=== PATIENT | female | born 1985 | race Asian ===

== ENCOUNTER → 2019-12-15 14:22 | Outpatient (CLI) | payer OTHER, SELFPAY ==
[2019-12-15 15:51] LABS: HCG Quantitative /Beta subunit < 2.4 mIU/mL
== END ==
PROVIDERS: Referring Provider Specialist; Visit Provider Specialist
DX: O20.9 Hemorrhage in early pregnancy, unspecified (principal)
CPT/HCPCS: 36415; 84702

== ENCOUNTER → 2021-06-22 09:03 | Outpatient (CLI) | payer OTHER, SELFPAY ==
[2021-06-22 16:52] LABS: Urine N gonorrhoeae NOT DETECTED
[2021-06-22 17:07] LABS: Urine Chlamydia NOT DETECTED
== END ==
PROVIDERS: Visit Provider Specialist
DX: Z34.81 Encounter for supervision of other normal pregnancy, first trimester (principal); Z3A.10 10 weeks gestation of pregnancy
CPT/HCPCS: 87491; 87591

== ENCOUNTER → 2021-06-22 09:12 | Outpatient (CLI) | payer OTHER, SELFPAY ==
[2021-06-22 09:56] LABS: Appearance Urine UA CLEAR; Bilirubin Urine UA NEGATIVE (NEGATIVE); Color Urine UA YELLOW; Glucose Urine UA NEGATIVE (Negative); Ketones Urine UA NEGATIVE (NEGATIVE); Leukocyte Esterase Urine UA NEGATIVE (NEGATIVE); Nitrite Urine UA NEGATIVE (Negative); Occult Blood Urine UA NEGATIVE (Negative); Protein Urine UA TRACE (Negative); Specific Gravity Urine UA 1.025 (1.000-1.035); Urobilinogen Urine UA 0.2 E.U./dL (0.2)
[2021-06-22 10:00] LABS: pH Urine UA 6.5 (4.5-8.0)
[2021-06-22 10:12] LABS: Add Manual Diff / Slide Review NO; Basophils Absolute Auto 0 /uL (0-100); Basophils Percent Auto 0.6 % (0-2); Eosinophils Absolute Auto 200 /uL (0-450); Eosinophils Percent Auto 2.8 % (2-4); Hematocrit 37.9 % (36-46); Hemoglobin 13.3 g/dL (12.0-16.0); Lymphocytes Absolute Auto 1800 /uL (1100-4500); Lymphocytes Percent Auto 25.7 % (25-40); Mean Corpuscular HGB Conc 35.1 % (30-36); Mean Corpuscular Hemoglobin 31.1 PG (26-34); Mean Corpuscular Volume 88.6 fL (80-100); Monocytes Absolute Auto 300 /uL (0-900); Monocytes Percent Auto 4.6 % (3-14); Neutrophils Absolute Auto 4700 /uL (1500-7000); Neutrophils Percent Auto 66.3 % (50-75); Platelet Count 250 X10^3/uL (150-400); Red Blood Cell Count 4.28 X10^6/uL (4.0-5.2); Red Cell Distribution Width 13.1 % (11.6-14.8)
[2021-06-23 12:06] LABS: RPR Screen Non Reactive (Non Reactive); Varicella IgG Antibody 1829 index (Immune >165)
[2021-06-23 15:28] LABS: Hepatitis B Surface Antigen NEGATIVE s/c (NEGATIVE); Rubella Antibody IgG 54.8 IU/mL (>15)
[2021-06-23 15:30] LABS: HIV 1 & 2 Ab/Ag 4th Gen Combo NEGATIVE (NEGATIVE); Hep C Virus Ab w/Reflex Quant NEGATIVE s/c (NEGATIVE)
== END ==
PROVIDERS: PCP Family Medicine; Referring Provider Specialist; Visit Provider Specialist
DX: Z34.81 Encounter for supervision of other normal pregnancy, first trimester (principal); Z3A.10 10 weeks gestation of pregnancy
CPT/HCPCS: 36415; 80055; 81003; 86787; 86803; 86850; 86900; 86901; 87086; 87389; 87491; 87591

== ENCOUNTER → 2021-06-30 10:45 | Outpatient (CLI) | payer OTHER, SELFPAY ==
[2021-06-30 16:05] LABS: Specimen Label NATARA KIT
== END ==
PROVIDERS: PCP Family Medicine; Referring Provider Specialist; Visit Provider Specialist
DX: O09.511 Supervision of elderly primigravida, first trimester (principal); Z36.0 Encounter for antenatal screening for chromosomal anomalies
CPT/HCPCS: 36415

== ENCOUNTER → 2021-08-17 09:01 | Outpatient (CLI) | payer OTHER, SELFPAY ==
[2021-08-24 23:20] LABS: AFP Value 39.4 ng/mL (.); Gestational Age EDD (.); Insulin Dep Diabetes No (.); OSBR Risk 1IN 10000 (.); Results Report (.); Test Results *Screen Negative* (.)
== END ==
PROVIDERS: PCP Family Medicine; Referring Provider Specialist; Visit Provider Specialist
DX: Z34.82 Encounter for supervision of other normal pregnancy, second trimester (principal); Z3A.17 17 weeks gestation of pregnancy
CPT/HCPCS: 36415; 82105

== ENCOUNTER → 2021-09-15 08:51 | Outpatient (CLI) | payer OTHER, SELFPAY ==
--- NOTE | 2021-09-15 08:53 | DI.US.S_ITS ---
PROCEDURE: US OB >= 14 WEEKS FETUS INDICATIONS: ANATOMY OUTSIDE/PRIOR DATING DATA: Last menstrual period (LMP): April 11, 2021. LMP-based estimated date of delivery (FRANKO): January 16, 2022. First dating scan (date and location): June 22, 2021, Dr. Kyle's office. Estimated date of delivery (FRANKO) from first dating scan: June 22, 2021. TECHNIQUE: Real-time scanning was performed of the fetus, with image documentation and biometric measurements. Endovaginal scanning: Not performed COMPARISON: [facility], , OB >= 14 WEEKS FETUS, 07/20/2021, 8:24. FINDINGS: General: A single living intrauterine gestation is present. Presentation: Vertex. Placenta: Placental position is posterior , without previa. Lower placental edge 2 cm or less from internal cervical os qualifies as low lying placenta. Amniotic fluid index: 13.1 cm, normal range is 5-24 cm. Single deepest vertical pocket is 3.5 cm. heart rate: 149 beats per minute. Maternal cervical canal: 3.8 cm long. Normal lower limit is 2.5 cm. biometrics: Biparietal diameter: 5.1 cm, 21 weeks, 3 days Head circumference: 18.9 cm, 21 weeks 1 day Abdominal circumference: 17.3 cm, 22 weeks 1 day Femur length: 3.4 cm, 20 weeks, 5 days Clinically estimated gestational age: 21 weeks, 1 day Composite gestational age from present scan: 21 weeks, 3 days Estimated weight and percentile: 429 g, 65% Anatomic survey: Neuro: Ventricles are non-dilated at less than 10 mm. Cisterna magna is normal at 3-11 mm. Cerebellum is normal in size and morphology. Nuchal skin fold: Normal at less than 6 mm between 14-21 weeks gestational age. Face: Nose and lips, facial profile are normal. Spine: No evidence for spina bifida. Heart: 4-chambered heart is present, with normal ventricular outflow tracts. Diaphragm: Diaphragm is intact. Stomach: Left-sided stomach is present. Kidneys: No hydronephrosis. Normal is less than 5 mm in 2nd trimester, less than 7 mm in 3rd trimester. Cord: 3-vessel cord has orthotopic insertion. Bladder: Normal in size. Extremities: All 4 extremities identified. IMPRESSION: Single live intrauterine gestation with a composite gestational age of 21 weeks, 3 days which is concordant with dates by initial study. No sonographic anatomic abnormalities. We strive to produce accurate, complete, and clear reports of imaging services. To assist us in improving patient care, this report was composed using standard report templates and voice recognition software. Therefore, it may contain abnormal punctuation, insertions and/or omissions. Occasional wrong-word or sound-alike substitutions may occur. Though we review the report and make efforts to correct it, we do recommend that the report be read carefully in proper context to recognize any text inaccuracies. Dictated by: Magda Jacob M.D. on 09/15/2021 at 11:11 Approved by: Magda Jacob M.D. on 09/15/2021 at 11:16
== END ==
PROVIDERS: PCP Family Medicine; Referring Provider Specialist; Visit Provider Specialist
DX: Z34.82 Encounter for supervision of other normal pregnancy, second trimester (principal); Z3A.21 21 weeks gestation of pregnancy
CPT/HCPCS: 76811

== ENCOUNTER → 2021-09-30 15:26 | Outpatient (CLI) | payer OTHER, SELFPAY ==
[2021-09-30 16:40] LABS: Add Manual Diff / Slide Review NO; Basophils Absolute Auto 0 /uL (0-100); Basophils Percent Auto 0.4 % (0-2); Eosinophils Absolute Auto 100 /uL (0-450); Eosinophils Percent Auto 1.7 % (2-4); Hematocrit 32.4 % (36-46); Hemoglobin 11.3 g/dL (12.0-16.0); Lymphocytes Absolute Auto 1600 /uL (1100-4500); Mean Corpuscular Hemoglobin 32.5 PG (26-34); Mean Corpuscular Volume 93.1 fL (80-100); Monocytes Absolute Auto 400 /uL (0-900); Monocytes Percent Auto 5.2 % (3-14); Neutrophils Absolute Auto 5900 /uL (1500-7000); Neutrophils Percent Auto 72.7 % (50-75); Platelet Count 225 X10^3/uL (150-400); Red Blood Cell Count 3.48 X10^6/uL (4.0-5.2); Red Cell Distribution Width 13.5 % (11.6-14.8)
[2021-09-30 17:02] LABS: Alanine Aminotransferase 12 IU/L (<35); Aspartate Aminotransferase 20 IU/L (14-36); BUN Creatinine Ratio 18.9 (6-22); Blood Urea Nitrogen 10 mg/dL (7-17); Estimated Glomerular Filt Rate > 60.0 mL/min (>60); Uric Acid 4.3 mg/dL (2.5-6.2)
== END ==
PROVIDERS: PCP Family Medicine; Referring Provider Specialist; Visit Provider Specialist
DX: O16.2 Unspecified maternal hypertension, second trimester (principal); Z3A.23 23 weeks gestation of pregnancy
CPT/HCPCS: 36415; 82565; 84450; 84460; 84520; 84550; 85025

== ENCOUNTER → 2021-10-03 10:44 | Outpatient (CLI) | payer OTHER, SELFPAY ==
[2021-10-03 13:13] LABS: Collection Time Urine 24 Hours; Protein (Total) Urine Random 10 mg/dL (0-12); Total Protein 24 Hour Urine 90 mg/day (42-225); Total Volume Urine 900 mL
== END ==
PROVIDERS: PCP Family Medicine; Referring Provider Specialist; Visit Provider Specialist
DX: O16.2 Unspecified maternal hypertension, second trimester (principal); Z3A.23 23 weeks gestation of pregnancy
CPT/HCPCS: 84156

== ENCOUNTER 2021-10-03 10:45 | Outpatient (CLI) | payer OTHER, SELFPAY ==
--- NOTE | 2021-10-03 11:33 | P.TNLD_ITS ---
Visit Information Visit Information Date of evaluation: 10/03/21 Primary OB Provider: Lisset Kyle On-call OB Provider: Susan Jesus Comments/Additional reasons for admission: Pt is a 36yo at 23w5d who presented due to elevated BPs at home. The pt was seen in clinic for elevated BPs on 09/30, lab work was reassuring at that time. She turned in her 24hr protein this morning. She does have know chronic HTN. She had been on 100mg Labetalol BID, increased to TID dosing on 09/30. She reports her BPs at home have been 147/101, 139/101, 145/101, 145/85, 138/85, 150/100, immediately before comping 146/90, 145/95. She denies any headaches, vision changes, RUQ pain, worsening LE edema. [facility] Medical History (Updated 09/30/21 @ 15:11 by Lisset Kyle MD) UTI (urinary tract infection) Vaginal delivery Family History (Updated 06/13/21 @ 12:01 by Penny Reyna RN) Mother Hypothyroid Cancer Sister Hypothyroid Cancer Social History marital status: number of children: 1 household members: spouse, family (Husbands parents) and children lives independently: Yes caregiver/support person: Yes housing: house pets and animals: No education level: college occupational status: unemployed current occupational exposures/hazards: No seatbelt use: always working smoke detector in home: Yes fire extinguisher in home: Yes carbon monox detector in home: Yes firearms in home: Yes firearms unloaded and locked: Yes do you feel safe at home: Yes Smoking Status: Never smoker second hand exposure: No alcohol intake: former during the past year weight has: remained stable well-balanced diet: daily or most days daily servings fruits/ve or more times/day caffeine: Yes eating out: rarely or never Type(s) of exercise: walking, aerobic, weight lifting and resistance training Evaluation Evaluation Baseline heart rate: 150 Diagnosis, Plan/Disposition Final Diagnosis (1) Hypertension affecting in second trimester: Status: Acute Plan/Disposition Plan: Pt is a 36yo at 23w5d who presented due to elevated BPs at home with known chronic HTN. BPs consistently normal range in L&D. Asymptomatic. Pt turned in 24hr protein this morning, labs negative for HELLP on 09/30. Encouraged the pt to continue checking her BPs at home regularly, would likely benefit from a new BP cuff. Discussed values that should prompt evaluation. Encouraged f/u with primary OB to review BPs again later this week. Stable for d/c home. OB Disposition: home
[2021-10-03 12:18] VITALS: BP 125/74; PULSE 85; RESP 20; TEMP 36.6
== END 2021-10-03 12:10 | disposition home or self-care (01) ==
LOC: LABOR 12:03 → OB 10-07 09:30
PROVIDERS: PCP Family Medicine; Referring Provider Specialist; Visit Provider Specialist
DX: O10.912 Unspecified pre-existing hypertension complicating pregnancy, second trimester (principal); Z3A.23 23 weeks gestation of pregnancy
CPT/HCPCS: 59050; 84156; G0378; G0379

== ENCOUNTER 2021-10-04 10:31 | Outpatient (CLI) | payer OTHER, SELFPAY | END 2021-10-04 11:25 | disposition home or self-care (01) | LOC: LABOR 11:12 → OB 10-07 09:33 | PROVIDERS: PCP Family Medicine; Referring Provider Specialist; Visit Provider Specialist | DX: O09.522 Supervision of elderly multigravida, second trimester (principal); Z3A.23 23 weeks gestation of pregnancy | CPT/HCPCS: 59025; G0378; G0379 ==

== ENCOUNTER → 2021-11-04 08:54 | Outpatient (CLI) | payer OTHER, SELFPAY ==
[2021-11-04 10:48] LABS: Glucose 1 Hour Gest 182 mg/dL (76-180)
[2021-11-04 11:03] LABS: Glucose Fasting Gestational 78 mg/dL (76-95)
[2021-11-04 12:16] LABS: Glucose Tol Interp,Gestational INTERPRETATION
[2021-11-04 12:22] LABS: Glucose 2 Hour Gest 150 mg/dL (76-155)
[2021-11-04 13:30] LABS: Glucose 3 Hour Gest 115 mg/dL (76-140)
== END ==
PROVIDERS: PCP Family Medicine; Referring Provider Specialist; Visit Provider Specialist
DX: O99.810 Abnormal glucose complicating pregnancy (principal)
CPT/HCPCS: 36415; 82951; 82952

== ENCOUNTER 2021-12-16 16:14 | Outpatient (CLI) | payer OTHER, SELFPAY ==
--- NOTE | 2021-12-16 16:47 | PM.OBTRLD ---
Visit Information Visit Information Date of evaluation: 12/16/21 Primary OB Provider: Lisset Kyle Reason for Evaluation: Yes non-stress test non-stress test reason: hypertension/pre-eclampsia Vital Signs Vital Signs: Blood pressure 156/83, pulse of 89 PFSH Medical History (Updated 12/16/21 @ 16:48 by Lisset Kyle MD) Irregular menstrual bleeding UTI (urinary tract infection) Vaginal delivery Family History (Updated 06/13/21 @ 12:01 by Penny Reyna RN) Mother Hypothyroid Cancer Sister Hypothyroid Cancer Social History marital status: number of children: 1 household members: spouse, family (Husbands parents) and children lives independently: Yes caregiver/support person: Yes housing: house pets and animals: No education level: college occupational status: unemployed current occupational exposures/hazards: No seatbelt use: always working smoke detector in home: Yes fire extinguisher in home: Yes carbon monox detector in home: Yes firearms in home: Yes firearms unloaded and locked: Yes do you feel safe at home: Yes Smoking Status: Never smoker second hand exposure: No alcohol intake: former during the past year weight has: remained stable well-balanced diet: daily or most days daily servings fruits/ve or more times/day caffeine: Yes eating out: rarely or never Type(s) of exercise: walking, aerobic, weight lifting and resistance training Evaluation Evaluation Baseline heart rate: 130 Variability: Moderate (11-25) monitor accelerations: Present Monitor Decelerations: Absent Contraction Frequency (minutes): 0 Category of Tracing: Reactive Status: Category l Diagnosis, Plan/Disposition Final Diagnosis (1) Hypertension affecting in third trimester: Status: Acute (2) 33 weeks gestation of : Status: Acute Plan/Disposition Plan: Patient with chronic hypertension. Reactive nonstress test. Continue weekly nonstress tests. OB Disposition: home
== END 2021-12-16 16:55 | disposition home or self-care (01) ==
LOC: LABOR 16:16 → OB 12-19 10:50
PROVIDERS: PCP Family Medicine; Referring Provider Specialist; Visit Provider Specialist
DX: O10.913 Unspecified pre-existing hypertension complicating pregnancy, third trimester (principal); Z3A.33 33 weeks gestation of pregnancy
CPT/HCPCS: 59025; G0378; G0379

== ENCOUNTER 2021-12-22 14:33 | Inpatient (IN) | payer OTHER, SELFPAY ==
[2021-12-22] MEDS: NIFEdipine 10 MG CAPSULE PO ×2 (15:24→18:09)
[2021-12-22 16:03] LABS: Add Manual Diff / Slide Review NO; Basophils Absolute Auto 0 /uL (0-100); Basophils Percent Auto 0.7 % (0-2); Eosinophils Absolute Auto 100 /uL (0-450); Eosinophils Percent Auto 1.7 % (2-4); Hematocrit 35.4 % (36-46); Hemoglobin 12.6 g/dL (12.0-16.0); Lymphocytes Absolute Auto 1800 /uL (1100-4500); Lymphocytes Percent Auto 26.7 % (25-40); Mean Corpuscular HGB Conc 35.5 % (30-36); Mean Corpuscular Hemoglobin 33.7 PG (26-34); Mean Corpuscular Volume 94.7 fL (80-100); Monocytes Absolute Auto 500 /uL (0-900); Monocytes Percent Auto 7.7 % (3-14); Neutrophils Absolute Auto 4200 /uL (1500-7000); Neutrophils Percent Auto 63.2 % (50-75); Platelet Count 177 X10^3/uL (150-400); Red Blood Cell Count 3.74 X10^6/uL (4.0-5.2); Red Cell Distribution Width 12.9 % (11.6-14.8); White Blood Cell Count 6.7 X10^3/uL (4.5-11.0)
[2021-12-22 16:16] LABS: Alanine Aminotransferase 16 IU/L (<35); Albumin 4.4 g/dL (3.5-5.0); Albumin Globulin Ratio 1.2 (1.0-2.8); Alkaline Phosphatase 115 U/L (38-126); Aspartate Aminotransferase 26 IU/L (14-36); Bilirubin Total 0.3 mg/dL (0.2-1.3); Bilirubin Unconjugated 0.3 mg/dL (0.0-1.1); Globulin 3.6 g/dL (1.7-4.1); HEMOLYSIS < 15 (0-50); Uric Acid 5.5 mg/dL (2.5-6.2)
[2021-12-22] MEDS: HYDRALAZINE 20 MG/ML VIAL 5 MG IV ×2 (16:35→16:54)
[2021-12-22 16:54] VITALS: BP 165/110; PULSE 91
[2021-12-22 17:19] VITALS: BP 156/100; PULSE 92
[2021-12-22] MEDS: LABETALOL 20 MG/4 ML SYRINGE 10 MG IV (17:19)
--- NOTE | 2021-12-22 17:20 | PM.OBHP.1 ---
OB HPI Date/Time Date of admission: 12/22/21 Date Patient Seen: 12/22/21 Time Patient Seen: 17:20 History of Present Condition Chief complaint: hypertension : 3 Para: 1 Estimated Date of Delivery: 01/25/22 Estimated Gestational Age (weeks): 35 Narrative: Alicja Werner is a 36 year old female with chronic hypertension with significant blood pressure elevations found at routine nonstress test History of Present care: good care, initiated at week # (9), number of visits (11) and pounds weight gain (20) Dating criteria: based on 1st trimester US only Ultrasounds: normal mid trimester US Medical complications: cardiovascular (Hypertension) Preadmission Labs Blood type: A (+) positive -: Antibody screen: negative, GBS status: negative, HBsAG: negative, HIV: negative and RPR/VDLR: negative -: Chlamydia screen: not detected and Gonorrhea screen: not detected -: Rubella: immune and Varicella: immune HCAB: negative Quad screen: Normal 1 hr GTT: 163 3 hr GTT: 1 hr (182), 2 hr (150) and 3 hr (115) Fasting blood glucose: 78 Prior (ies) History: 11/07/17 40 week 10 8 lb 2 oz Femalevaginallive - full termnoneIH 1yr Hanh 01/14/20 6-7 spontaneous Evaluation Evaluation Baseline heart rate: 130 Variability: Moderate (11-25) monitor accelerations: Present Monitor Decelerations: Absent Contraction Frequency (minutes): 0 Category of Tracing: Reactive Status: Category l PFSH Medical History (Updated 12/16/21 @ 16:48 by Lisset Kyle MD) Irregular menstrual bleeding UTI (urinary tract infection) Vaginal delivery Family History (Updated 06/13/21 @ 12:01 by Penny Reyna RN) Mother Hypothyroid Cancer Sister Hypothyroid Cancer Social History marital status: number of children: 1 household members: spouse, family (Husbands parents) and children lives independently: Yes caregiver/support person: Yes housing: house pets and animals: No education level: college occupational status: unemployed current occupational exposures/hazards: No seatbelt use: always working smoke detector in home: Yes fire extinguisher in home: Yes carbon monox detector in home: Yes firearms in home: Yes firearms unloaded and locked: Yes do you feel safe at home: Yes Smoking Status: Never smoker second hand exposure: No alcohol intake: former during the past year weight has: remained stable well-balanced diet: daily or most days daily servings fruits/ve or more times/day caffeine: Yes eating out: rarely or never Type(s) of exercise: walking, aerobic, weight lifting and resistance training Meds Home Medications and Allergies Home Medications Medication Instructions Recorded Confirmed Type vit no.95-ferrous 1 tab PO DAILY 11/07/17 12/16/21 History fumarate 28 mg-folic acid 800 mcg tablet () labetalol 100 mg tablet See Rx Instructions .Route 11/18/21 12/16/21 Rx .COMPLEX #90 tabs Allergies Allergy/AdvReac Type Severity Reaction Status Date / Time No Known Drug Allergies Allergy Verified 12/16/21 15:47 Review of Systems Review of Systems Narrative: Patient denies headaches, scotomata, epigastric pain. She did have extra caffeine this afternoon and had an issue with her sister that placed her under more stress. OB Exam Narrative Exam Narrative: Blood pressures are in the 160s over 110s HEENT exam within normal limits. Lungs are clear to auscultation percussion. Heart is regular rate and rhythm no S3-S4 murmurs. Abdomen is soft, nontender. Fetus is vertex. Extremities without edema and nontender. Normal DTRs. Ultrasound biophysical profile normal amniotic fluid volume, good movement, tone, breathing seen. The measurements appeared to be normal growth. Objective Labs Result Diagrams: 12/22/21 15:50 Labs: Laboratory Results - last 24 hr 12/22/21 12/22/21 15:50 15:50 WBC 6.7 RBC 3.74 L Hgb 12.6 Hct 35.4 L MCV 94.7 MCH 33.7 MCHC 35.5 RDW 12.9 Plt Count 177 Neut % (Auto) 63.2 Lymph % (Auto) 26.7 [place] % (Auto) 7.7 Eos % (Auto) 1.7 L Baso % (Auto) 0.7 Neut # (Auto) 4200 Lymph # (Auto) 1800 [place] # (Auto) 500 Eos # (Auto) 100 Baso # (Auto) 0 Uric Acid 5.5 Total Bilirubin 0.3 Conjugated Bilirubin 0.0 Unconjugated Bilirubin 0.3 AST 26 ALT 16 Alkaline Phosphatase 115 Total Protein 8.0 Albumin 4.4 Globulin 3.6 Albumin/Globulin Ratio 1.2 Assessment and Plan Assessment and Plan Assessment and Plan narrative: 35 week gestation with hypertension with no evidence of preeclampsia. Patient has been given IV labetalol, p.o. nifedipine, IV hydralazine. Will see if Ativan helps with her symptoms. Monitor for evidence of preeclampsia. Time Spent with Patient Total time spent with greater than 50% in coordination of care (as documented) at patient's floor/unit and/or counseling patient:: 25 - 35 minutes
[2021-12-22] MEDS: LORazepam 0.5 MG TABLET PO (18:07)
[2021-12-22] MEDS: NIFEdipine 30 MG TAB ER PO (18:09)
[2021-12-22 18:45] LABS: Protein (Total) Urine Random 10 mg/dL (0-12)
[2021-12-22 18:46] LABS: Creatinine Urine Random 27.9 mg/dL; Protein Creatinine Ratio Urine 0.35 GRAM/24H
[2021-12-22] MEDS: BETAMETHASONE 30 MG/5 ML MDV 12 MG IM (20:08)
--- NOTE | 2021-12-22 20:50 | PM.OBPNLAB ---
Date/Time Date Patient Seen: 12/22/21 Time Patient Seen: 20:00 Status status: Category l Heart Rate Baseline: 140 Monitor Accelerations: Present Monitor Decelerations: Absent Monitor Variability: Moderate Assessment and Plan Comments: This patient is admitted for worsening cHTN, with an increase only 10-15mmgHg over her baseline in clinic. Patient admits to intermittently missing doses of her labetalol, and is concerned about taking too many medications. BPs have been better controlled on PO nifedipine, now s/p 30mg ER along with 10mg IR. Discussed reasoning behind consistently taking BP medication. Discussed increased risk of preeclampsia, discussed that starting ASA after 20 weeks decreases effectiveness of risk mitigation. Discussed recommendation for course of betamethasone. - COntinue hourly BPs - NSTs q4 hrs - resume home labetalol and 30mg XR nifedipine - Repeat labs in the AM - Start 24 hour urine protein in AM
[2021-12-22 21:20] VITALS: BP 149/84; PULSE 98
[2021-12-22] MEDS: LABETALOL 100 MG TABLET 200 MG PO (21:20)
[2021-12-22 22:39] LABS: COVID19 -Nasal RAPID Negative (Negative)
[2021-12-23 06:24] LABS: Add Manual Diff / Slide Review NO; Basophils Absolute Auto 0 /uL (0-100); Basophils Percent Auto 0.2 % (0-2); Eosinophils Absolute Auto 0 /uL (0-450); Hematocrit 34.6 % (36-46); Hemoglobin 12.1 g/dL (12.0-16.0); Lymphocytes Absolute Auto 1000 /uL (1100-4500); Lymphocytes Percent Auto 12.9 % (25-40); Mean Corpuscular HGB Conc 35.1 % (30-36); Mean Corpuscular Hemoglobin 33.5 PG (26-34); Mean Corpuscular Volume 95.6 fL (80-100); Monocytes Absolute Auto 100 /uL (0-900); Monocytes Percent Auto 1.3 % (3-14); Neutrophils Absolute Auto 6900 /uL (1500-7000); Neutrophils Percent Auto 85.6 % (50-75); Platelet Count 189 X10^3/uL (150-400); Red Blood Cell Count 3.62 X10^6/uL (4.0-5.2); White Blood Cell Count 8.1 X10^3/uL (4.5-11.0)
[2021-12-23 06:45] LABS: Uric Acid 6.4 mg/dL (2.5-6.2)
[2021-12-23 06:46] LABS: Alanine Aminotransferase 15 IU/L (<35); Alkaline Phosphatase 119 U/L (38-126); Aspartate Aminotransferase 25 IU/L (14-36); BUN Creatinine Ratio 35.2 (6-22); Bilirubin Total 0.5 mg/dL (0.2-1.3); Blood Urea Nitrogen 19 mg/dL (7-17); Calcium 9.6 mg/dL (8.4-10.2); Carbon Dioxide 19 mmol/L (22-32); Chloride 104 mmol/L (98-107); Estimated Glomerular Filt Rate > 60 mL/min (>60); Glucose 120 mg/dL (70-100); Potassium 4.2 mmol/L (3.4-5.1); Sodium 134 mmol/L (137-145)
[2021-12-23 06:47] LABS: Albumin 4.2 g/dL (3.5-5.0); Albumin Globulin Ratio 1.2 (1.0-2.8); Globulin 3.5 g/dL (1.7-4.1); HEMOLYSIS < 15 (0-50); Total Protein 7.7 g/dL (6.3-8.2)
--- NOTE | 2021-12-23 08:09 | P.DS_ITS ---
Discharge Providers Provider Date of admission: 12/22/21 14:33 Discharge Date: 12/23/21 Primary care physician: Yessenia Madrigal MD Discharge provider: Lisset Kyle MD Summary Hospital Course Date Patient Seen: 12/23/21 Time Patient Seen: 08:10 Diagnoses: Hypertension in 3rd trimester Hospital Course: Patient was admitted to control significant hypertension found at T for chronic hypertension. Patient with no evidence of preeclampsia. She received IV labetalol, IV hydralazine, p.o. nifedipine, p.o. labetalol. Patient denies headaches, scotomata, epigastric pain. The patient's preeclamptic labs were only positive for a urine protein spot screen of 350 Time Spent with Patient Time attestation: Total time spent providing and/or coordinating discharge services: Objective Labs Result Diagrams: 12/23/21 06:02 12/23/21 06:02 Labs: Laboratory Results - last 24 hr 12/22/21 12/22/21 12/22/21 15:50 15:50 17:45 WBC 6.7 RBC 3.74 L Hgb 12.6 Hct 35.4 L MCV 94.7 MCH 33.7 MCHC 35.5 RDW 12.9 Plt Count 177 Neut % (Auto) 63.2 Lymph % (Auto) 26.7 Power % (Auto) 7.7 Eos % (Auto) 1.7 L Baso % (Auto) 0.7 Neut # (Auto) 4200 Lymph # (Auto) 1800 Power # (Auto) 500 Eos # (Auto) 100 Baso # (Auto) 0 Sodium Potassium Chloride Carbon Dioxide BUN Creatinine Estimated GFR BUN/Creatinine Ratio Glucose Uric Acid 5.5 Calcium Total Bilirubin 0.3 Conjugated Bilirubin 0.0 Unconjugated Bilirubin 0.3 AST 26 ALT 16 Alkaline Phosphatase 115 Total Protein 8.0 Albumin 4.4 Globulin 3.6 Albumin/Globulin Ratio 1.2 U Random Total Protein Urine Creatinine Protein/Creatinin Ratio SARS-CoV-2 (PCR) Negative 12/22/21 12/23/21 12/23/21 17:52 06:02 06:02 WBC 8.1 RBC 3.62 L Hgb 12.1 Hct 34.6 L MCV 95.6 MCH 33.5 MCHC 35.1 RDW 13.0 Plt Count 189 Neut % (Auto) 85.6 H D Lymph % (Auto) 12.9 L Power % (Auto) 1.3 L Eos % (Auto) 0.0 L Baso % (Auto) 0.2 Neut # (Auto) 6900 Lymph # (Auto) 1000 L Power # (Auto) 100 Eos # (Auto) 0 Baso # (Auto) 0 Sodium Potassium Chloride Carbon Dioxide BUN Creatinine Estimated GFR BUN/Creatinine Ratio Glucose Uric Acid 6.4 H Calcium Total Bilirubin Conjugated Bilirubin Unconjugated Bilirubin AST ALT Alkaline Phosphatase Total Protein Albumin Globulin Albumin/Globulin Ratio U Random Total Protein 10 Urine Creatinine 27.9 Protein/Creatinin Ratio 0.35 SARS-CoV-2 (PCR) 12/23/21 06:02 WBC RBC Hgb Hct MCV MCH MCHC RDW Plt Count Neut % (Auto) Lymph % (Auto) Power % (Auto) Eos % (Auto) Baso % (Auto) Neut # (Auto) Lymph # (Auto) Power # (Auto) Eos # (Auto) Baso # (Auto) Sodium 134 L Potassium 4.2 Chloride 104 Carbon Dioxide 19 L BUN 19 H Creatinine 0.54 Estimated GFR > 60 BUN/Creatinine Ratio 35.2 H Glucose 120 H Uric Acid Calcium 9.6 Total Bilirubin 0.5 Conjugated Bilirubin Unconjugated Bilirubin AST 25 ALT 15 Alkaline Phosphatase 119 Total Protein 7.7 Albumin 4.2 Globulin 3.5 Albumin/Globulin Ratio 1.2 U Random Total Protein Urine Creatinine Protein/Creatinin Ratio SARS-CoV-2 (PCR) Discharge Plan Discharge Plan Patient Disposition: Home Discharge orders & Medications Prescriptions: New labetalol 100 mg Tablet 200 mg PO TID Qty: 30 0RF nifedipine 30 mg tablet extended release 30 mg PO DAILY Qty: 30 0RF Continued PNV cmb#95-ferrous fumarate-FA [] 28 mg iron- 800 mcg Tablet 1 tab PO DAILY Discontinued labetalol 100 mg tablet See Rx Instructions .ROUTE .COMPLEX Qty: 90 1RF Dose Instruction: TAKE 1 TABLET (100mg) BY MOUTH 3 TIMES DAILY for hypertension Rx Instructions: TAKE 1 TABLET (100mg) BY MOUTH 3 TIMES DAILY for hypertension Follow up/Referrals: Lisset Kyle MD [Physician] - 12/26/21 (call to schedule) Yessenia Madrigal MD [Primary Care Provider] - Diet/Activity/Treatments Diet: Regular Activity: bedrest Discharge Data Primary Care Provider: Yessenia Madrigal Attending Provider: Lisset Kyle
[2021-12-23 08:53] VITALS: BP 125/66
[2021-12-23] MEDS: LABETALOL 100 MG TABLET 200 MG PO (08:53)
--- NOTE | 2021-12-23 10:36 | P.DS_ITS ---
History of Present Illness History of Present Illness Date Patient Seen: 12/23/21 Time Patient Seen: 08:00 Chief complaint: hypertension Narrative: Significant hypertension at 35 weeks gestation Discharge Providers Provider Date of admission: 12/22/21 14:33 Discharge Date: 12/23/21 Primary care physician: Yessenia Madrigal MD Discharge provider: Lisset Kyle MD Summary Hospital Course Discharge Diagnosis: Hypertension in 3rd trimester 35 weeks Hospital Course: Patient was found to have significant hypertension despite her p.o. labetalol when she was in Labor and delivery for a nonstress test. Patient required IV labetalol, IV hydralazine, p.o. nifedipine and p.o. labetalol to get her blood pressure under control. Patient had no signs and symptoms of preeclampsia. Her only preeclamptic lab that was abnormal was a urine protein spot screen of 350. Patient's blood pressures remained stable throughout the night. Current blood pressure 125/66. Patient denies headaches, scotomata, epigastric pain. No abdominal pain. No vaginal bleeding. No leakage of fluid. Good mov ement. Status at Discharge Cognitive/behavioral status at discharge: oriented Functional status at discharge: independent ambulation Overall status at discharge: patient is progressing back to baseline Time Spent with Patient Time spent: Less than 30 minutes Exam Vital Signs (past 8 hours): - Blood pressure 125/66, pulse of 86, temperature 36.8? 12/23/21 08:53 Blood Pressure 125/66 Narrative Exam Narrative: Patient's abdomen is soft, nontender. NST is reactive , no decelerations or contractions. DTRs are normal. Objective Labs Result Diagrams: 12/23/21 06:02 12/23/21 06:02 Labs: Laboratory Results - last 24 hr 12/22/21 12/22/21 12/22/21 15:50 15:50 17:45 WBC 6.7 RBC 3.74 L Hgb 12.6 Hct 35.4 L MCV 94.7 MCH 33.7 MCHC 35.5 RDW 12.9 Plt Count 177 Neut % (Auto) 63.2 Lymph % (Auto) 26.7 [place] % (Auto) 7.7 Eos % (Auto) 1.7 L Baso % (Auto) 0.7 Neut # (Auto) 4200 Lymph # (Auto) 1800 [place] # (Auto) 500 Eos # (Auto) 100 Baso # (Auto) 0 Sodium Potassium Chloride Carbon Dioxide BUN Creatinine Estimated GFR BUN/Creatinine Ratio Glucose Uric Acid 5.5 Calcium Total Bilirubin 0.3 Conjugated Bilirubin 0.0 Unconjugated Bilirubin 0.3 AST 26 ALT 16 Alkaline Phosphatase 115 Total Protein 8.0 Albumin 4.4 Globulin 3.6 Albumin/Globulin Ratio 1.2 U Random Total Protein Urine Creatinine Protein/Creatinin Ratio SARS-CoV-2 (PCR) Negative 12/22/21 12/23/21 12/23/21 17:52 06:02 06:02 WBC 8.1 RBC 3.62 L Hgb 12.1 Hct 34.6 L MCV 95.6 MCH 33.5 MCHC 35.1 RDW 13.0 Plt Count 189 Neut % (Auto) 85.6 H D Lymph % (Auto) 12.9 L [place] % (Auto) 1.3 L Eos % (Auto) 0.0 L Baso % (Auto) 0.2 Neut # (Auto) 6900 Lymph # (Auto) 1000 L [place] # (Auto) 100 Eos # (Auto) 0 Baso # (Auto) 0 Sodium Potassium Chloride Carbon Dioxide BUN Creatinine Estimated GFR BUN/Creatinine Ratio Glucose Uric Acid 6.4 H Calcium Total Bilirubin Conjugated Bilirubin Unconjugated Bilirubin AST ALT Alkaline Phosphatase Total Protein Albumin Globulin Albumin/Globulin Ratio U Random Total Protein 10 Urine Creatinine 27.9 Protein/Creatinin Ratio 0.35 SARS-CoV-2 (PCR) 12/23/21 06:02 WBC RBC Hgb Hct MCV MCH MCHC RDW Plt Count Neut % (Auto) Lymph % (Auto) [place] % (Auto) Eos % (Auto) Baso % (Auto) Neut # (Auto) Lymph # (Auto) [place] # (Auto) Eos # (Auto) Baso # (Auto) Sodium 134 L Potassium 4.2 Chloride 104 Carbon Dioxide 19 L BUN 19 H Creatinine 0.54 Estimated GFR > 60 BUN/Creatinine Ratio 35.2 H Glucose 120 H Uric Acid Calcium 9.6 Total Bilirubin 0.5 Conjugated Bilirubin Unconjugated Bilirubin AST 25 ALT 15 Alkaline Phosphatase 119 Total Protein 7.7 Albumin 4.2 Globulin 3.5 Albumin/Globulin Ratio 1.2 U Random Total Protein Urine Creatinine Protein/Creatinin Ratio SARS-CoV-2 (PCR) [facility] Medical History (Updated 12/16/21 @ 16:48 by Lisset Kyle MD) Irregular menstrual bleeding UTI (urinary tract infection) Vaginal delivery Family History (Updated 06/13/21 @ 12:01 by Penny Reyna RN) Mother Hypothyroid Cancer Sister Hypothyroid Cancer Social History marital status: number of children: 1 household members: spouse, family (Husbands parents) and children lives independently: Yes caregiver/support person: Yes housing: house pets and animals: No education level: college occupational status: unemployed current occupational exposures/hazards: No seatbelt use: always working smoke detector in home: Yes fire extinguisher in home: Yes carbon monox detector in home: Yes firearms in home: Yes firearms unloaded and locked: Yes do you feel safe at home: Yes Smoking Status: Never smoker second hand exposure: No alcohol intake: former during the past year weight has: remained stable well-balanced diet: daily or most days daily servings fruits/ve or more times/day caffeine: Yes eating out: rarely or never Type(s) of exercise: walking, aerobic, weight lifting and resistance training Discharge Assessment & Plan Assessment and Plan Assessment: 35 week gestation with chronic hypertension with increased blood pressure requiring control with IV antihypertensives. Plan of Treatment: Patient appears to be stable now. She will be discharged home with increased labetalol p.o. as well as long-acting nifedipine. Patient will collect a 24 hour urine to turn in on 12/26 with blood pressure check and nonstress test. Precautions reviewed. Discharge Plan Discharge Plan Patient Disposition: Home Discharge orders & Medications Prescriptions: New labetalol 100 mg Tablet 200 mg PO TID Qty: 30 0RF nifedipine 30 mg tablet extended release 30 mg PO DAILY Qty: 30 0RF Continued PNV cmb#95-ferrous fumarate-FA [] 28 mg iron- 800 mcg Tablet 1 tab PO DAILY Discontinued labetalol 100 mg tablet See Rx Instructions .ROUTE .COMPLEX Qty: 90 1RF Dose Instruction: TAKE 1 TABLET (100mg) BY MOUTH 3 TIMES DAILY for hypertension Rx Instructions: TAKE 1 TABLET (100mg) BY MOUTH 3 TIMES DAILY for hypertension Follow up/Referrals: Lisset Kyle MD [Physician] - 12/26/21 (call to schedule) Yessenia Madrigal MD [Primary Care Provider] - Diet/Activity/Treatments Diet: Regular Activity: bedrest Discharge Data Primary Care Provider: Yessenia Madrigal Attending Provider: Lisset Kyle
[2021-12-24 03:41] LABS: Lactate Dehydrogenase 458 U/L (313-618)
== END 2021-12-23 10:05 | disposition home or self-care (01) | DRG 833 ==
PROVIDERS: Obstetrics & Gynecology; Admitting Provider Specialist; PCP Family Medicine; Referring Provider Specialist; Visit Provider Specialist
DX: O10.913 Unspecified pre-existing hypertension complicating pregnancy, third trimester (principal); Z3A.35 35 weeks gestation of pregnancy; Z20.822 Contact with and (suspected) exposure to COVID-19
CPT/HCPCS: 59025; 59050; 76815; 80053; 80076; 82570; 83615; 84156; 84550; 85025; 87635; 96372; C9803; G0378; G0379; J0360; J0702

== ENCOUNTER → 2021-12-26 08:05 | Outpatient (CLI) | payer OTHER, SELFPAY ==
[2021-12-26 10:58] LABS: Collection Time Urine 24 Hours; Protein (Total) Urine Random 12 mg/dL (0-12); Total Protein 24 Hour Urine 258 mg/day (42-225); Total Volume Urine 2150 mL
== END ==
PROVIDERS: PCP Family Medicine; Referring Provider Specialist; Visit Provider Specialist
DX: O16.3 Unspecified maternal hypertension, third trimester (principal)
CPT/HCPCS: 84156

== ENCOUNTER 2021-12-26 08:27 | Outpatient (CLI) | payer OTHER, SELFPAY ==
--- NOTE | 2021-12-26 09:02 | PM.OBTRLD ---
Visit Information Visit Information Date of evaluation: 12/26/21 Primary OB Provider: Lisset Kyel Reason for Evaluation: Yes non-stress test non-stress test reason: hypertension/pre-eclampsia Vital Signs Vital Signs: Blood pressure 128/79, pulse 80, temperature 36.7? [facility] Medical History (Updated 12/26/21 @ 09:03 by Lisset Kyle MD) Irregular menstrual bleeding UTI (urinary tract infection) Vaginal delivery Family History (Updated 06/13/21 @ 12:01 by Penny Reyna RN) Mother Hypothyroid Cancer Sister Hypothyroid Cancer Social History marital status: number of children: 1 household members: spouse, family (Husbands parents) and children lives independently: Yes caregiver/support person: Yes housing: house pets and animals: No education level: college occupational status: unemployed current occupational exposures/hazards: No seatbelt use: always working smoke detector in home: Yes fire extinguisher in home: Yes carbon monox detector in home: Yes firearms in home: Yes firearms unloaded and locked: Yes do you feel safe at home: Yes Smoking Status: Never smoker second hand exposure: No alcohol intake: former during the past year weight has: remained stable well-balanced diet: daily or most days daily servings fruits/ve or more times/day caffeine: Yes eating out: rarely or never Type(s) of exercise: walking, aerobic, weight lifting and resistance training Evaluation Evaluation Baseline heart rate: 130 Variability: Moderate (11-25) monitor accelerations: Present Monitor Decelerations: Absent Category of Tracing: Reactive Status: Category l Diagnosis, Plan/Disposition Final Diagnosis (1) Hypertension affecting in third trimester: Status: Acute (2) 35 weeks gestation of : Status: Acute Plan/Disposition Plan: Continue increased labetalol. Patient unable to tolerate nifedipine. Awaiting results of 24 hour urine. Continue twice weekly stress tests. OB Disposition: home
== END 2021-12-26 09:03 | disposition home or self-care (01) ==
LOC: LABOR 08:35 → OB 12-28 09:05
PROVIDERS: PCP Family Medicine; Referring Provider Specialist; Visit Provider Specialist
DX: O16.3 Unspecified maternal hypertension, third trimester (principal); Z3A.35 35 weeks gestation of pregnancy
CPT/HCPCS: 59025; 84156; G0378; G0379

== ENCOUNTER → 2021-12-30 16:06 | Outpatient (CLI) | payer OTHER, SELFPAY ==
[2021-12-30 16:54] LABS: Alanine Aminotransferase 15 IU/L (<35); Aspartate Aminotransferase 26 IU/L (14-36); Uric Acid 6.3 mg/dL (2.5-6.2)
[2021-12-30 16:56] LABS: Add Manual Diff / Slide Review NO; Basophils Absolute Auto 0 /uL (0-100); Basophils Percent Auto 0.3 % (0-2); Eosinophils Absolute Auto 100 /uL (0-450); Hematocrit 34.8 % (36-46); Hemoglobin 12.1 g/dL (12.0-16.0); Lymphocytes Absolute Auto 1900 /uL (1100-4500); Lymphocytes Percent Auto 25.1 % (25-40); Mean Corpuscular HGB Conc 34.9 % (30-36); Mean Corpuscular Hemoglobin 33.4 PG (26-34); Mean Corpuscular Volume 95.7 fL (80-100); Monocytes Absolute Auto 500 /uL (0-900); Monocytes Percent Auto 6.9 % (3-14); Neutrophils Absolute Auto 4900 /uL (1500-7000); Neutrophils Percent Auto 66.7 % (50-75); Platelet Count 209 X10^3/uL (150-400); Red Blood Cell Count 3.64 X10^6/uL (4.0-5.2); Red Cell Distribution Width 13.2 % (11.6-14.8); White Blood Cell Count 7.4 X10^3/uL (4.5-11.0)
[2021-12-30 16:57] LABS: BUN Creatinine Ratio 28.8 (6-22); Blood Urea Nitrogen 17 mg/dL (7-17); Estimated Glomerular Filt Rate > 60 mL/min (>60)
[2021-12-30 17:32] LABS: Creatinine Urine Random 82.3 mg/dL; Protein (Total) Urine Random 10 mg/dL (0-12); Protein Creatinine Ratio Urine 0.12 GRAM/24H
[2021-12-31 12:11] LABS: Strep Grp B PCR NEG for Grp B Strep
== END ==
PROVIDERS: PCP Family Medicine; Referring Provider Specialist; Visit Provider Specialist
DX: O16.3 Unspecified maternal hypertension, third trimester (principal); Z3A.36 36 weeks gestation of pregnancy
CPT/HCPCS: 36415; 82565; 82570; 84156; 84450; 84460; 84520; 84550; 85025; 87653

== ENCOUNTER 2021-12-30 16:22 | Observation (INO) | payer OTHER, SELFPAY ==
[2021-12-30 17:49] VITALS: BP 146/82; PULSE 80
[2021-12-30] MEDS: LABETALOL 100 MG TABLET PO (17:49)
[2021-12-30] MEDS: NIFEdipine 10 MG CAPSULE PO (17:49)
== END 2021-12-30 19:00 | disposition home or self-care (01) ==
LOC: LABOR 16:24
PROVIDERS: Admitting Provider Specialist; PCP Family Medicine; Referring Provider Specialist; Visit Provider Specialist
DX: O10.913 Unspecified pre-existing hypertension complicating pregnancy, third trimester (principal); Z3A.36 36 weeks gestation of pregnancy
CPT/HCPCS: 36415; 59025; 59050; 82565; 82570; 84156; 84450; 84460; 84520; 84550; 85025; 87653; G0378; G0379

== ENCOUNTER 2022-01-03 09:27 | Observation (INO) | payer OTHER, SELFPAY ==
--- NOTE | 2022-01-03 09:54 | PM.OBTRLD ---
Visit Information Visit Information Date of evaluation: 01/03/22 Primary OB Provider: Lisset Kyle Reason for Evaluation: Yes non-stress test Vital Signs Vital Signs: Blood pressure 123/75 PFSH Medical History (Updated 01/03/22 @ 09:57 by Lisset Kyle MD) Irregular menstrual bleeding UTI (urinary tract infection) Vaginal delivery Family History (Updated 06/13/21 @ 12:01 by Penny Reyna RN) Mother Hypothyroid Cancer Sister Hypothyroid Cancer Social History marital status: number of children: 1 household members: spouse, family (Husbands parents) and children lives independently: Yes caregiver/support person: Yes housing: house pets and animals: No education level: college occupational status: unemployed current occupational exposures/hazards: No seatbelt use: always working smoke detector in home: Yes fire extinguisher in home: Yes carbon monox detector in home: Yes firearms in home: Yes firearms unloaded and locked: Yes do you feel safe at home: Yes Smoking Status: Never smoker second hand exposure: No alcohol intake: former during the past year weight has: remained stable well-balanced diet: daily or most days daily servings fruits/ve or more times/day caffeine: Yes eating out: rarely or never Type(s) of exercise: walking, aerobic, weight lifting and resistance training Evaluation Evaluation Baseline heart rate: 125 Variability: Moderate (11-25) monitor accelerations: Present Monitor Decelerations: Variable Cervical dilation (cm): 1 Cervical effacement (%): 0 station: -2 Diagnosis, Plan/Disposition Final Diagnosis (1) Hypertension affecting in third trimester: Status: Acute (2) 36 weeks gestation of : Status: Acute Plan/Disposition Plan: Patient in for nonstress test. She is scheduled for Cervidil induction tonight. OB Disposition: home
== END 2022-01-03 10:19 | disposition home or self-care (01) ==
PROVIDERS: Admitting Provider Specialist; PCP Family Medicine; Referring Provider Specialist; Visit Provider Specialist
DX: O16.3 Unspecified maternal hypertension, third trimester (principal); Z3A.28 28 weeks gestation of pregnancy
CPT/HCPCS: 59025; G0378; G0379

== ENCOUNTER 2022-01-03 18:00 | Inpatient (IN) | payer OTHER, SELFPAY ==
[2022-01-03 18:52] LABS: Add Manual Diff / Slide Review NO; Basophils Absolute Auto 0 /uL (0-100); Basophils Percent Auto 0.7 % (0-2); Eosinophils Absolute Auto 100 /uL (0-450); Hematocrit 36.6 % (36-46); Hemoglobin 13.1 g/dL (12.0-16.0); Lymphocytes Absolute Auto 1700 /uL (1100-4500); Mean Corpuscular HGB Conc 35.7 % (30-36); Mean Corpuscular Hemoglobin 34.1 PG (26-34); Mean Corpuscular Volume 95.5 fL (80-100); Monocytes Absolute Auto 400 /uL (0-900); Monocytes Percent Auto 5.8 % (3-14); Neutrophils Absolute Auto 4600 /uL (1500-7000); Neutrophils Percent Auto 67.5 % (50-75); Platelet Count 191 X10^3/uL (150-400); Red Blood Cell Count 3.84 X10^6/uL (4.0-5.2); White Blood Cell Count 6.8 X10^3/uL (4.5-11.0)
[2022-01-03 19:05] VITALS: BP 140/88
[2022-01-03 19:21] LABS: Alanine Aminotransferase 15 IU/L (<35); Albumin Globulin Ratio 1.2 (1.0-2.8); Alkaline Phosphatase 123 U/L (38-126); Aspartate Aminotransferase 26 IU/L (14-36); BUN Creatinine Ratio 27.7 (6-22); Bilirubin Total 0.2 mg/dL (0.2-1.3); Blood Urea Nitrogen 18 mg/dL (7-17); Calcium 9.5 mg/dL (8.4-10.2); Carbon Dioxide 19 mmol/L (22-32); Chloride 106 mmol/L (98-107); Estimated Glomerular Filt Rate > 60 mL/min (>60); Globulin 3.3 g/dL (1.7-4.1); Glucose 106 mg/dL (70-100); HEMOLYSIS < 15 (0-50); Potassium 4.1 mmol/L (3.4-5.1); Sodium 134 mmol/L (137-145); Total Protein 7.3 g/dL (6.3-8.2)
[2022-01-03 19:32] LABS: COVID19 -Nasal RAPID Negative (Negative)
[2022-01-03] MEDS: DINOPROSTONE VAG (CERVIDIL) 10 MG VAG (19:57)
[2022-01-03 22:26] VITALS: BP 139/79; PULSE 81
[2022-01-03] MEDS: LABETALOL 100 MG TABLET 200 MG PO (22:26)
[2022-01-04] VITALS (9 sets, daily range): BP systolic 140–178; BP diastolic 89–107; PULSE 70–80; RESP 14–22; TEMP 36.2–36.7; O2SAT 100
[2022-01-04] MEDS: LACTATED RINGERS 1,000 ML 100 ML IV ×3 (01:25→15:32)
[2022-01-04] MEDS: LABETALOL 100 MG TABLET 200 MG PO ×3 (06:14→21:11)
[2022-01-04] MEDS: NIFEdipine 30 MG TAB ER PO (06:14)
--- NOTE | 2022-01-04 08:07 | P.PNOB_ITS ---
Date/Time Date Patient Seen: 01/04/22 Time Patient Seen: 08:07 Pain Control Pain control: tolerating well Pelvic Exam Dilation (cm): 1 Effacement (%): 20 station: -2 Amniotic membrane status: Intact Contractions Contractions on admission: irregular Monitor mode: External Contraction intensity: Mild Status status: Category ll Heart Rate Baseline: 120 Monitor Accelerations: Present Monitor Decelerations: Late (Two late decelerations to the 60s lasting for 2-3 minutes in the last 8 hours) Monitor Variability: Moderate Assessment and Plan Assessment: other Plan: Comments: Discussed the concern with the intermittent severe variables overnight with the Cervidil and the minimal change in the cervical dilation. Discussed options continuing Prostin, Robledo bulb induction, starting Pitocin, proceeding with a C- section. Patient's blood pressures ranged from 139/75 to 181/91. Highest blood pressure after discussion about . Patient is requesting section. Next available in the operating room at this time is 5:00 p.m.. We will monitor for need to do a section earlier.
[2022-01-04] MEDS: LORazepam 2 MG/ML INJ 0.5 MG IV (10:43)
--- NOTE | 2022-01-04 12:34 | PM.OBPNLAB ---
Date/Time Date Patient Seen: 01/04/22 Time Patient Seen: 12:34 Pelvic Exam Effacement (%): 20 station: -2 Amniotic membrane status: Intact Comments: Blood pressure 153/83 after IV Ativan. Contractions Contractions on admission: none Monitor mode: External Contraction intensity: Mild Status status: Category ll Assessment and Plan Comments: Consent form for section reviewed with the patient. Minimal risk of damage to internal structures such as bowel, bladder, ureters that could require additional surgery to repair. Risk of infection that could require additional antibiotics. Risk of bleeding enough to require blood transfusion which she is agreeable if necessary to save her life. Reaction to medication or anesthesia. Consent form signed and questions answered.
--- NOTE | 2022-01-04 15:02 | P.OP.PRE_ITS ---
Pre-operative Note COVID-19 COVID-19 status: Negative Result date/Date tested (Pos, Neg/Pending): 01/03/22 Criteria for continued procedure: Delay expected to result in less-positive ultimate med/surg outcome Interval Note History & Physical reviewed/Exam performed by Physician: Yes Changes to H&P: No H&P completed within 30 days and has changed as indicated here:: intoler ance of labor requesting
[2022-01-04] MEDS: CEFAZOLIN 2 GM/20 ML SYRINGE IV (15:58)
--- NOTE | 2022-01-04 16:00 | SUR.OPER ---
Supine on Padded OR bed, head on pillow, safety belt at thigh, arms secured on padded arm boards at <90 degrees abduction. Bump under right buttock. Legs uncrossed with pillow under knees, gel pad to heels, tape over blanket to lower legs. Safety strap at thighs. Directed and approved by MD Kyle
--- NOTE | 2022-01-04 16:16 | SUR.OPER ---
Viable baby delivered at 1610. Placenta and cord blood sent with JOSEPH WILLIAMSON.
--- NOTE | 2022-01-04 17:12 | PM.OP.1 ---
Operative Date/Time/Diagnoses Date of procedure: 01/04/22 Time of procedure: 17:12 Pre-op diagnosis: intolerance of labor, uncontrolled hypertension Post-op diagnosis: same Procedure & Clinicians Procedure: Primary low-transverse section Same procedure as scheduled: Yes Indications: During induction of labor for uncontrolled hypertension the fetus had several episodes of decelerations to the 60s for several minutes. Decision was made that the fetus would it would be unlikely to tolerate further labor so decision was made to proceed with section. Surgeon: Lisset Kyle Click Yes if Unassisted: Yes Anesthesia Type: Spinal Operative Notes Findings: Normal tubes, ovaries, uterus. Viable male infant weighing 7 lb 2 oz with Apgars of 2 and 8. Closure Type: primary Specimen(s): none sent Applied: catheter (Robledo) Estimated Blood Loss (mL): 500 Blood products transfused: none Procedure in detail: The patient was brought to the operating room where she underwent a spinal for anesthesia. She was placed in a supine position with a left lateral tilt. A Robledo catheter was placed. Pulsatile stockings were placed and functional throughout the case. 2 g of Ancef were given IV prior to the incision. Warming was in place. The patient was prepped and draped in usual sterile fashion. A low transverse incision was made with a scalpel and the incision was carried down to the fascial layer which was incised transversely with scissors. The midline attachments are superiorly and inferiorly. Some bleeding was controlled Bovie. The rectus muscles were in the midline and the peritoneal incision was made with no damage to internal structures. The peritoneum was incised and superiorly and inferiorly. The incision was stretched with the surgeon and assistant infant teacher placing traction. Bladder blade was placed and a bladder flap was developed and the bladder held away from the lower uterine segment. An incision was made in the uterus with the scalpel and the incision was extended with stretching. The head was elevated out of the abdomen and with fundal pressure by the assistant infant teacher and the vacuum and the baby was delivered. The was bulb suctioned for clear fluid and handed off to the warmer after 45 seconds of delayed cord clamping. Cord blood was collected. The placenta delivered spontaneously with traction. The uterus was cleaned with clean laps. The uterine incision was closed in 2 layers of 0 chromic suture the first a running locking layer the second an imbricating layer. The bladder peritoneum was repaired with 2-0 Vicryl suture. The gutters were cleaned of any remaining fluids and ovaries and tubes were observed to be normal. Adequate hemostasis was noted. The perineum was closed with 2-0 Vicryl suture. The fascia layer was closed with 0 Vicryl suture with 2 stitches. The incision was irrigated and adequate hemostasis noted. The incision was closed with interrupted 3-0 Vicryl sutures and then a subcuticular stitch of 4-0 Vicryl suture. Steri-Strips were placed. The uterus was massaged to remove any clots. The patient went to recovery room in good condition. Counts of instruments and sponges were correct. Complications: none Post-operative Condition: stable Disposition: other ( Center) Plan for aftercare: Routine post section with careful monitoring of patient for blood pressure and symptoms of preeclampsia.
[2022-01-04] MEDS: LABETALOL 20 MG/4 ML SYRINGE 10 MG IV ×2 (17:41→18:47)
[2022-01-04] MEDS: HYDRALAZINE 20 MG/ML VIAL 10 MG IV (20:02)
[2022-01-04] MEDS: LORazepam 2 MG/ML INJ 1 MG IV (20:25)
[2022-01-04] MEDS: KETOROLAC 30 MG/ML VIAL IV (23:27)
[2022-01-05] MEDS: LACTATED RINGERS 1,000 ML 100 ML IV (01:18)
[2022-01-05] MEDS: KETOROLAC 30 MG/ML VIAL IV ×2 (05:39→11:34)
[2022-01-05 07:52] LABS: Add Manual Diff / Slide Review NO; Basophils Absolute Auto 0 /uL (0-100); Basophils Percent Auto 0.5 % (0-2); Eosinophils Absolute Auto 100 /uL (0-450); Eosinophils Percent Auto 0.7 % (2-4); Hematocrit 29.1 % (36-46); Hemoglobin 10.4 g/dL (12.0-16.0); Lymphocytes Absolute Auto 1600 /uL (1100-4500); Mean Corpuscular HGB Conc 35.9 % (30-36); Mean Corpuscular Volume 94.8 fL (80-100); Monocytes Absolute Auto 600 /uL (0-900); Monocytes Percent Auto 6.3 % (3-14); Neutrophils Absolute Auto 7400 /uL (1500-7000); Neutrophils Percent Auto 76.5 % (50-75); Platelet Count 157 X10^3/uL (150-400); Red Blood Cell Count 3.07 X10^6/uL (4.0-5.2); Red Cell Distribution Width 12.9 % (11.6-14.8); White Blood Cell Count 9.7 X10^3/uL (4.5-11.0)
[2022-01-05 08:07] LABS: Alanine Aminotransferase 10 IU/L (<35); Albumin 3.2 g/dL (3.5-5.0); Albumin Globulin Ratio 1.2 (1.0-2.8); Alkaline Phosphatase 91 U/L (38-126); Aspartate Aminotransferase 27 IU/L (14-36); BUN Creatinine Ratio 24.1 (6-22); Bilirubin Total 0.3 mg/dL (0.2-1.3); Blood Urea Nitrogen 14 mg/dL (7-17); Calcium 9.1 mg/dL (8.4-10.2); Carbon Dioxide 26 mmol/L (22-32); Chloride 104 mmol/L (98-107); Estimated Glomerular Filt Rate > 60 mL/min (>60); Globulin 2.7 g/dL (1.7-4.1); Glucose 70 mg/dL (70-100); HEMOLYSIS < 15 (0-50); Potassium 3.9 mmol/L (3.4-5.1); Sodium 132 mmol/L (137-145); Total Protein 5.9 g/dL (6.3-8.2)
[2022-01-05 10:17] VITALS: BP 141/87; PULSE 103
[2022-01-05] MEDS: LABETALOL 100 MG TABLET 200 MG PO ×3 (10:17→20:53)
[2022-01-05] MEDS: NIFEdipine 30 MG TAB ER PO (10:18)
[2022-01-05] MEDS: DOCUSATE 100 MG CAPSULE 200 MG PO (10:18)
--- NOTE | 2022-01-05 10:46 | P.PNOB_ITS ---
Subjective - OB Subjective Patient comments: no complaints and tolerating diet [place] baby status: doing well feeding status: exclusively breast feeding Date Patient Seen: 01/05/22 Time Patient Seen: 08:00 Interval history: Patient is doing well post section. She denies headaches, scotomata, epigastric pain. She has not gotten out of bed yet since removal of her Robledo catheter. She denies any significant pain. Breast-feeding is going well. Exam Vital Signs (past 8 hours): - Last 3 blood pressure is 137/89, 140/88, 129/86 pulse of 97, temperature 98.5? 01/05/22 10:17 Pulse Rate 103 H Blood Pressure 141/87 H Oxygen Delivery Method Room Air Narrative Exam Narrative: Abdomen is soft, nontender. Uterus is firm, at U, nontender. Dressing is clean, dry, intact. Mild lochia. Extremities without edema and nontender. Objective Labs Result Diagrams: 01/05/22 07:32 01/05/22 07:32 Labs: Laboratory Results - last 24 hr 01/05/22 01/05/22 07:32 07:32 WBC 9.7 RBC 3.07 L Hgb 10.4 L Hct 29.1 L MCV 94.8 MCH 34.0 MCHC 35.9 RDW 12.9 Plt Count 157 Neut % (Auto) 76.5 H Lymph % (Auto) 16.0 L [place] % (Auto) 6.3 Eos % (Auto) 0.7 L Baso % (Auto) 0.5 Neut # (Auto) 7400 H Lymph # (Auto) 1600 [place] # (Auto) 600 Eos # (Auto) 100 Baso # (Auto) 0 Sodium 132 L Potassium 3.9 Chloride 104 Carbon Dioxide 26 BUN 14 Creatinine 0.58 Estimated GFR > 60 BUN/Creatinine Ratio 24.1 H Glucose 70 Calcium 9.1 Total Bilirubin 0.3 AST 27 ALT 10 Alkaline Phosphatase 91 Total Protein 5.9 L Albumin 3.2 L Globulin 2.7 Albumin/Globulin Ratio 1.2 Assessment & Plan Assessment and Plan (1) Delivery by section using transverse incision of lower segment of uterus: Status: Acute (2) Hypertension affecting in third trimester: Status: Acute Plan day: 1 plan OB: routine postop care Comments: Continue to monitor patient's blood pressure and for signs of preeclampsia. Patient is to continue on labetalol and nifedipine. Time Spent With Patient Time: Total time spent is greater than 50% in coordination of care (as documented) at patient's floor/unit and/or counseling patient: Time with patient: less than 15 minutes
[2022-01-05 16:11] VITALS: BP 133/84; PULSE 106
[2022-01-05] MEDS: FERROUS SULFATE 325 MG TABLET PO (16:12)
[2022-01-05 16:40] VITALS: BP 146/96
[2022-01-05] MEDS: IBUPROFEN 600 MG TABLET PO ×2 (17:37→23:21)
[2022-01-05 20:53] VITALS: BP 134/88; PULSE 101
[2022-01-05 21:30] VITALS: BP 133/87
[2022-01-06] MEDS: IBUPROFEN 600 MG TABLET PO ×4 (06:01→23:37)
[2022-01-06 08:07] VITALS: BP 172/105; PULSE 93
[2022-01-06] MEDS: FERROUS SULFATE 325 MG TABLET PO ×2 (08:07→16:05)
[2022-01-06] MEDS: LABETALOL 100 MG TABLET 200 MG PO (08:07)
[2022-01-06] MEDS: DOCUSATE 100 MG CAPSULE 200 MG PO (08:07)
[2022-01-06] MEDS: NIFEdipine 30 MG TAB ER PO (08:08)
[2022-01-06 08:31] VITALS: BP 147/99
--- NOTE | 2022-01-06 14:05 | P.PNOB_ITS ---
Subjective - OB Subjective Patient comments: pain well controlled, tolerating diet and flatus present baby status: doing well feeding status: exclusively breast feeding Date Patient Seen: 01/06/22 Time Patient Seen: 12:30 Interval history: Patient feeling well except tired. Not much sleep last night with the baby up frequently. Reports her blood pressure tends to be higher when she is fatigued. Denies headache, scotomata, nausea or abdominal pain. Passing flatus. Inc isional discomfort is controlled with her pain medication. Lochia is normal. Baby is without problems. BP's are somewhat labile, but not low. This a.m. BP 170/100, then repeat in 15 minutes 146/100 then 145/90. Patient with similar elevation in afternoon with repeat within 10-15 minutes back out of severe range BP. Exam Vital Signs (past 8 hours): - 01/06/22 08:07 01/06/22 08:31 Pulse Rate 93 H Blood Pressure 172/105 H 147/99 H Oxygen Delivery Method Room Air Narrative Exam Narrative: General: ?Well-appearing female Abdomen: ?Soft, nontender except for expected [place]and[place]-incisional tenderness, nondistended. ?Fundus @U, firm, nontender Dressing intact. It has some old blood staining from 1st day, unchanged. No erythema around the dressing Extremities: ?No pedal edema DTR 1+. No clonus. Objective Labs Result Diagrams: 01/05/22 07:32 01/05/22 07:32 Assessment & Plan Assessment and Plan (1) Delivery by section using transverse incision of lower segment of uterus: Status: Acute (2) Hypertension affecting in third trimester: Status: Acute Plan day: 2 plan OB: routine postop care Comments: Having a normal postop course. Continue postoperative care. Labile hypertension, with some increase elevations today but not persistent elevated. Will defer repeating preeclamptic labs as normal for past 3 days. Labetalol increased to 300 mg every 8 hours and increased nifedipine to 30 mg XL every 12 hours. Continue inpatient care for titrating BP meds, better control of BP prior to discharge. Time Spent With Patient Time: Total time spent is greater than 50% in coordination of care (as documented) at patient's floor/unit and/or counseling patient: Time with patient: 15-24 minutes
[2022-01-06 16:07] VITALS: BP 145/88; PULSE 95
[2022-01-06] MEDS: LABETALOL 100 MG TABLET 300 MG PO ×2 (16:07→22:06)
[2022-01-06 16:32] VITALS: BP 154/97
[2022-01-06 22:06] VITALS: BP 151/91; PULSE 107
[2022-01-06 23:15] VITALS: BP 121/80; PULSE 94
[2022-01-07] MEDS: IBUPROFEN 600 MG TABLET PO (06:00)
[2022-01-07 06:05] VITALS: BP 144/91; PULSE 105
[2022-01-07] MEDS: LABETALOL 100 MG TABLET 300 MG PO (06:05)
[2022-01-07] MEDS: FERROUS SULFATE 325 MG TABLET PO (07:59)
[2022-01-07] MEDS: DOCUSATE 100 MG CAPSULE 200 MG PO (07:59)
[2022-01-07] MEDS: NIFEdipine 30 MG TAB ER PO (07:59)
--- NOTE | 2022-01-07 10:07 | PM.OBPN.1 ---
Subjective - OB Subjective Patient comments: no complaints and pain well controlled baby status: doing well feeding status: breast and bottle feeding Narrative: Blood pressure more controlled overnight after increasing labetalol to 300 mg every 8 hours. Nifedipine not increased since prior to increased dose, her BP was 120/80s. No headache, scotomata, nausea or abdominal pain. Tolerating p.o. does. Continues to pass flatus and had had a BM. Date Patient Seen: 01/07/22 Time Patient Seen: 10:20 Exam Vital Signs (past 8 hours): - 01/07/22 06:05 Pulse Rate 105 H Blood Pressure 144/91 H Oxygen Delivery Method Room Air Narrative Exam Narrative: General: ?Well-appearing female Abdomen: ?Soft, nondistended. Expected alexandria-incisional tenderness, otherwise nontender. Dressing change due to old blood staining from surgery. Incision is intact. No drainage or erythema. ?Fundus at umbilicus, firm, nontender Extremities: No pedal edema Objective Labs Result Diagrams: 01/05/22 07:32 01/05/22 07:32 Assessment & Plan Assessment and Plan (1) Delivery by section using transverse incision of lower segment of uterus: Status: Acute Assessment and plan: Normal postop recovery status post . Dressing changed due to some old blood staining. (2) Hypertension affecting in third trimester: Problem details: Blood pressure better controlled with increase labetalol to 300 three times daily. Status: Acute Plan plan OB: discharge home and other (Appointment in 1 week for a blood pressure check) Comments: With blood pressure better controlled, ready for discharge home. Time Spent With Patient Time: Total time spent is greater than 50% in coordination of care (as documented) at patient's floor/unit and/or counseling patient: Time with patient: 15-24 minutes
[2022-01-07 11:25] VITALS: BP 130/92; PULSE 90; RESP 16; TEMP 36.8
--- NOTE | 2022-01-07 11:46 | PM.OBDS.1 ---
Discharge Providers Provider Date of admission: 01/03/22 18:00 Discharge Date: 01/07/22 Primary care physician: Yessenia Madrigal MD Consults: 01/03/22 20:15 Consult to Anesthesiology Urgent Comment: Consulting Provider: Ana Anesthesia Reason for consultation: Epidural Has provider been notified: No 01/04/22 17:25 Consult to [employer] Routine Comment: Discharge provider: Joi Mae MD Summary Hospital Course Date Patient Seen: 01/07/22 Diagnoses: 37 week , delivered Chronic hypertension affecting intolerance of labor Delivered by primary lower transverse section Hospital Course: 36-year-old female admitted for induction of labor for chronic hypertension. Her BP says recently become more uncontrolled. Preeclamptic labs were normal and she had no signs and symptoms of preeclampsia. She underwent cervical ripening with Cervidil. The heart rate had 2 prolonged late decelerations, and she had had no significant cervical change with the Cervidil. Options were discussed including option for primary section was likely intolerance of induction of labor. She opted for primary section. She underwent primary lower transverse section without complications. She delivered a male weighing 7 lb 2 oz with Apgars of 2 and 8. Her postoperative course was complicated by some labile BP's, into the severe range. Preeclamptic labs were normal and she continued without symptoms of preeclampsia. Her hospitalization was continued until postoperative day 3 to titrate her BP medications. BP became better controlled and she is being discharge to home. She has had normal postoperative recovery otherwise, having normal return of bowel function. She has remained afebrile. Postoperative hemoglobin was 10.4. For BP control she is being discharged on Labetalol 300 mg every 8 hours and increased nifedipine to 30 mg XL every 12 hours. She will have a BP check in the office in 1 week. Peripartum Data Infant Delivery Method: Section complications: none 1: Gender: Male Disposition of : home Discharge Diagnosis (1) Delivery by section using transverse incision of lower segment of uterus: Status: Acute (2) Hypertension affecting in third trimester: Status: Acute Problem Details: Blood pressure better controlled with increase labetalol to 300 three times daily. Status at Discharge Cognitive/behavioral status at discharge: oriented Functional status at discharge: independent ambulation Overall status at discharge: patient is progressing back to baseline Time Spent with Patient Time attestation: Total time spent providing and/or coordinating discharge services: Time spent: Less than 30 minutes Objective Labs Result Diagrams: 01/05/22 07:32 01/05/22 07:32 Exam Vital Signs (past 8 hours): - 01/07/22 06:05 01/07/22 11:25 Temperature 98.3 F Pulse Rate 105 H 90 Respiratory Rate 16 Blood Pressure 144/91 H 130/92 H Oxygen Delivery Method Room Air Narrative Exam Narrative: General: ?Well-appearing female Abdomen: ?Soft, nondistended.? Expected a[place]andria-incisional tenderness, otherwise nontender.? Dressing change due to old blood staining from surgery.? Incision is intact.? No drainage or erythema. ?Fundus at umbilicus, firm, nontender Extremities: No pedal edema Discharge Plan Discharge Plan Patient Disposition: Home Provider Discharge Comment: Status post primary section. Delivery at 37 weeks for worsening hypertension, probable superimposed gestational hypertension of her chronic hypertension of . Discharge orders & Medications Prescriptions: New Purelan Cream 1 applic topical PRN PRN (Reason: ) Qty: 7 0RF Continued PNV [id number]-ferrous fumarate-FA [] 28 mg iron- 800 mcg Tablet 1 tab PO DAILY Discontinued labetalol 200 mg tablet 200 mg PO TID Qty: 60 0RF No Action labetalol 100 mg tablet 100 mg PO Q12H Qty: 180 0RF Follow up/Referrals: Joi Mae MD [Physician] - 01/12/22 11:45 am (1 week blood pressure check up and bandage removal. Please arrive @ 11:30am for check in. [address] up [address] Mae on 02/16/2022 @ 9:45am. Please arrive at 9:30am for check in. ) Yessenia Madrigal MD [Primary Care Provider] - Discharge Health Status Multidrug resistant organism: No MDRO Diet/Activity/Treatments Diet: Regular Activity: No heavy lifting for 6 weeks. Nothing in the vagina for 6 weeks including no tampons, no intercourse. Skin/Wound/Dressing Care Report to your healthcare provider any signs of infection, such as:: chills, fever, increased pain, unusual drainage and unusual redness Dressing: leave dressing on. It will be removed in the office at a follow-up visit. You may shower with the dressing on. No tub baths. Visit Report/Discharge Packet Instructions: DI for Stand Alone Forms: Discharge: Care Discharge Data Primary Care Provider: Yessenia Madrigal
== END 2022-01-07 12:25 | disposition home or self-care (01) | DRG 787 ==
PROVIDERS: Admitting Provider Specialist; PCP Family Medicine; Referring Provider Specialist; Visit Provider Specialist
PROC: 10D00Z1 Extraction of Products of Conception, Low, Open Approach (ICD-10-PCS; CPT 59514; principal; 2022-01-04 15:00)
DX: O76 Abnormality in fetal heart rate and rhythm complicating labor and delivery (principal); O16.3 Unspecified maternal hypertension, third trimester; Z3A.37 37 weeks gestation of pregnancy; Z37.0 Single live birth; Z20.822 Contact with and (suspected) exposure to COVID-19
CPT/HCPCS: 36415; 59025; 59050; 59200; 59510; 80053; 85025; 86850; 86900; 86901; 87635; C9803; G0379; J0360; J0690; J1885; J2060; J2274; J2590